=== PATIENT | male | born 1960 | race Caucasian/White ===

== ENCOUNTER 2016-10-17 06:18 | Day surgery (SDC) | payer MEDICAID ==
[~2016-10-17] VITALS: Ht 195.6 cm; Wt 90.5 kg
[2016-10-17] MEDS ORDERED: TRAZ50TA18 PO (07:11)
[2016-10-17] MEDS ORDERED: FERR325T20 PO (07:11)
[2016-10-17] MEDS ORDERED: HYDR25TA6 PO (07:11)
[2016-10-17] MEDS ORDERED: CLOP75TA PO (07:11)
[2016-10-17] MEDS ORDERED: ATEN25TA PO (07:11)
[2016-10-17] MEDS ORDERED: RANO500T2 PO (07:11)
[2016-10-17] MEDS ORDERED: ASPI-621 PO (07:11)
[2016-10-17] MEDS ORDERED: ATOR10TA PO (07:11)
[2016-10-17 07:31] VITALS: BP 116/77
[2016-10-17] MEDS ORDERED: SODIUM CHLORIDE 0.9% 1,000 ML IV SCH (07:31)
[2016-10-17] MEDS ORDERED: FENTANYL PF 100 MCG/2ML ONE (08:21)
[2016-10-17] MEDS ORDERED: MIDAZOLAM 1 MG/ML, 5ML ONE (08:21)
[2016-10-17] MEDS ORDERED: GLUCAGON 1 MG ONE (08:55)
[2016-10-17] MEDS ORDERED: SIMETHICONE DROPS 40 MG/0.6 ML BOTTLE ONE (09:36)
== END 2016-10-17 11:15 ==
LOC: OUT 06:18
PROVIDERS: ATTEND Internal Medicine Gastroenterology
DX: D50.9 Iron deficiency anemia, unspecified (principal); K55.20 Angiodysplasia of colon without hemorrhage; I10 Essential (primary) hypertension; F17.210 Nicotine dependence, cigarettes, uncomplicated
CPT/HCPCS: 44378; 99152; 99153; J1610; J2250; J3010